=== PATIENT | female | born 1960 | race African-American/Black ===

== ENCOUNTER 2019-03-03 04:00 | Emergency (ER) | payer MEDICAID ==
[~2019-03-03] VITALS: Ht 160 cm; Wt 58.5 kg
[2019-03-03 04:00] VITALS: BP 155/107
--- NOTE | 2019-03-03 04:00 | NUR ---
PT BIBA TAKEN TO BED 6
[2019-03-03] MEDS ORDERED: ALBUTEROL SULFATE/IPRATROPIU 3 ML SOL IH ONE (04:15)
[2019-03-03] MEDS ORDERED: FUROSEMIDE 40 MG/4 ML VIAL IVP ONE (04:15)
--- NOTE | 2019-03-03 04:15 | NUR ---
58 Y/O F BIBA WITH C/O SOB X1 DAY. AAOX4. BILATERAL LUNGS CLEAR THROUGHOUT. O2 SATURATION AT 98% ON NASAL CANNULA. RESPIRATIONS LABORED AND RAPID, R 29. CHEST RISE AND FALL SYMMETRICAL. BP ELEVATED AT 153/108. BED IN LOWEST POSTION. BEDRAILX1 UP. GURNEY LOCKED. WILL CONTINUE TO MONITOR. HX: CHF, ASHTMA, HTN, HYLD NKA
--- NOTE | 2019-03-03 04:41 | NUR ---
PT AMBULATED TO RESTROOM.
[2019-03-03 04:48] LABS: EOSINOPHILS # (AUTO) 0.2 K/uL (0-0.4); HEMOGLOBIN 11.4 g/dL (12.0-16.0); MONOCYTES # (AUTO) 0.3 K/uL (0.8-1.0); PLATELET COUNT (AUTO) 249 K/uL (140-450); RED CELL DISTRIBUTION WIDTH 17.9 % (11.6-13.7)
[2019-03-03 04:49] LABS: APPEARANCE,URINE CLEAR (CLEAR); BILIRUBIN,URINE NEGATIVE (NEGATIVE); BLOOD, URINE NEGATIVE (NEGATIVE); COLOR,URINE YELLOW (YELLOW); LEUKOCYTE ESTERASE ,URINE 3+ (NEGATIVE); NITRITE, URINE NEGATIVE (NEGATIVE); PH,URINE 6.5 (5.0-9.0); UGLUCOSE NEGATIVE (NEGATIVE)
[2019-03-03 04:56] LABS: BASOPHILS % (AUTO) 0.6 % (0.0-2.0); EOSINOPHILS % (AUTO) 2.6 % (0.0-4.0); HEMATOCRIT 35.8 % (36-48); LYMPHOCYTES # (AUTO) 1.9 K/uL (2.5-16.5); LYMPHOCYTES % (AUTO) 29.9 % (20.5-51.1); MEAN CORPUSCULAR HEMOGLOBIN 26 pg (27-31); MEAN CORPUSCULAR HGB CONC 32 g/dL (33-37); MEAN CORPUSCULAR VOLUME 81.3 fL (80-94); MONOCYTES % (AUTO) 5.3 % (1.7-9.3); NEUTROPHILS # (AUTO) 3.9 K/uL (1.8-7.7); NEUTROPHILS % (AUTO) 61.6 % (42.2-75.2); WHITE BLOOD COUNT (AUTO) 6.4 K/uL (4.8-10.8)
[2019-03-03 04:57] LABS: ANION GAP 11.1 (8-16); CARBON DIOXIDE 26.5 mmol/L (21-32); POTASSIUM 3.6 mmol/L (3.5-5.1)
[2019-03-03 05:14] LABS: RBC,URINE 0-5 /HPF (0-5); TRICHOMONAS,URINE Rare /HPF (None Seen); WBC,URINE TOO MANY TO COUNT /HPF (0-5)
[2019-03-03 05:24] LABS: ALBUMIN 2.9 g/dL (3.4-5.0); TOTAL BILIRUBIN 0.9 mg/dL (0.0-1.0)
--- NOTE | 2019-03-03 05:30 | NUR ---
PT AMBULATED TO RESTROOM
[2019-03-03] MEDS ORDERED: cefTRIAXone 1,000 MG VIAL ONE ×2 (05:41)
[2019-03-03] MEDS ORDERED: hydrALAZINE 20 MG/ML VIAL IVP ONE (06:00)
[2019-03-03] MEDS ORDERED: MORPHINE SULFATE 4 MG/ML SYR IVP ONE (06:00)
--- NOTE | 2019-03-03 06:01 | NUR ---
PT C/O PAIN, 03/[address] JACOB MADE AWARE.
--- NOTE | 2019-03-03 06:10 | NUR ---
BP 161/113, HR 93. DR JACOB MADE AWARE.
[2019-03-03] MEDS ORDERED: NACL 0.9% 1,000 ML IV SCH (06:43)
[2019-03-03] MEDS ORDERED: MORPHINE SULFATE 2 MG/ML SYR IVP PRN (06:45)
[2019-03-03] MEDS ORDERED: ONDANSETRON 4 MG/2 ML VIAL IM/IVP PRN (06:45)
[2019-03-03] MEDS ORDERED: ZOLPIDEM 5 MG TAB PO PRN (06:45)
[2019-03-03] MEDS ORDERED: LORazepam 2 MG/ML VIAL IM/IVP PRN (06:45)
[2019-03-03] MEDS ORDERED: ACETAMINOPHEN 325 MG TAB PO PRN (06:45)
[2019-03-03] MEDS ORDERED: HYDROcodone/APAP 5/325 MG 1 TAB TAB PO PRN (06:45)
[2019-03-03] MEDS ORDERED: DOCUSATE SODIUM 100 MG GELCAP PO PRN (06:45)
[2019-03-03] MEDS ORDERED: DEXTROSE 50% 50 ML SYR IVP PRN (06:50)
[2019-03-03] MEDS ORDERED: ALBUTEROL SULFATE/IPRATROPIU 3 ML SOL IH PRN (06:50)
[2019-03-03] MEDS ORDERED: INSULIN LISPRO SLIDING SCALE 100 UNITS/ML VIAL SUBQ PRN (06:50)
--- NOTE | 2019-03-03 06:50 | NUR ---
BP REEVALUATED. BP NOW 151/93. WILL CONTINUE TO MONITOR.
--- NOTE | 2019-03-03 07:08 | NUR ---
BEDSIDE REPORT GIVEN TO SHEBA ALMANZA. TRANSFER OF CARE AT THIS TIME.
[2019-03-03] MEDS ORDERED: FURO-572 PO (07:21)
[2019-03-03] MEDS ORDERED: SIMV10TA1 PO (07:21)
[2019-03-03] MEDS ORDERED: ORE25 PO (07:21)
[2019-03-03] MEDS ORDERED: METF500S6 PO (07:21)
[2019-03-03] MEDS ORDERED: AMLO10TA PO (07:21)
[2019-03-03 07:27] LABS: PROTHROMBIN TIME 9.8 secs (10.8-13.4)
[2019-03-03 07:28] LABS: BARBITURATE, URINE NEG. ng/ml (NEG <=200); BENZODIAZEPINE, URINE NEG. ng/mL (NEG <=200); CANNABINOID, URINE NEG. ng/mL (NEG <=50); COCAINE, URINE POS. ng/mL (NEG <=300); OPIATE, URINE NEG. ng/mL (NEG <=2000); PHENCYCLIDINE SCREEN,URINE NEG. ng/mL (NEG <=25)
[2019-03-03] MEDS ORDERED: BLOOD GLUCOSE MONITORING 1 DEV DEV FS SCH (07:30)
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
--- NOTE | 2019-03-03 07:36 | NUR ---
PT AMBULATED OUTSIDE OF ER AND BEGAN TO SMOKE AND AGAIN AND STATES " IM GROWN YALL CANT TELL ME WHAT TO DO, I WANT TO SPEAK WITH MY DOCTORS", PT INSTRUCTED TO COME BACK INSIDE ER, AMBULATED INSIDE TO ER.
[2019-03-03 07:37] LABS: CHOL/HDL RATIO 2.9 (1-4.5); MAGNESIUM 2.1 mg/dL (1.8-2.4); THYROID STIMULATING HORMONE 1.8 uIU/mL (0.34-3.74)
[2019-03-03] MEDS ORDERED: FUROSEMIDE 40 MG/4 ML VIAL IVP SCH (08:00)
--- NOTE | 2019-03-03 08:10 | NUR ---
RESIDENT AT THE BEDSIDE. PT LYING COMFORTABLY IN HER BED, PENDING ADMIT. BS 85. GAVE ORANGE JUICE AND STARTED IV FLUID ORDERED. WILL CONTINUE TO MONITOR PT.
--- NOTE | 2019-03-03 08:15 | NUR ---
PT GIVEN BREAKFAST TRAY.
[2019-03-03] MEDS ORDERED: LACTOBACILLUS RHAMNOSUS GG 1 EACH CAP PO SCH (09:00)
[2019-03-03] MEDS ORDERED: NICOTINE TRANSD SYS 14 MG/24 HR PATCH TD SCH (09:00)
--- NOTE | 2019-03-03 09:27 | NUR ---
CHECKED ON PT. ASSISTED HER TO THE DSC. PAIN 6/10 AT THIS TIME. SITTING COMFORTABLY IN HER BED. PT O2 SAT 98% ON RA. PER PT, NO NEED OF OXYGEN SUPPLY. WILL CONTINUE TO MONITOR PT.
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
--- NOTE | 2019-03-03 11:27 | NUR ---
PT WENT WALKED OUT OF ER, PT ASKING FOR BELONGINGS THAT HAS BEEN WITH SECURITY. PT NON-COMPLIANCE WITH INSTRUCTION. RESIDENT DOCTOR MADE AWARE OF THE SITUATION. HOSPITAL SECURITY NOTIFIED.
--- NOTE | 2019-03-03 11:30 | NUR ---
PT WALKED OUT OF ER, ALL BELONGING RETURNED, IV REMOVED, PT AMBULATORY , STEADY GAIT. PATIENT ELOPED FROM FACILITY. DISCHARGE INSTRUCTIONS NOT GIVEN TO PATIENT. RESIDENT DOCTORS MADE AWARE.
[2019-03-03 11:33] VITALS: BP 135/86
--- NOTE | 2019-03-03 11:33 | NUR ---
PT ELOPED FORM ER . IV TAKEN OUT . SECURITY GAVE ALL PTS BELONGINGS. PT LEFT THE HOSPITAL. RESIDENT MADE AWARE. PT AAOX4 , ABLE TO AMBULATE. PT NON-COMPLAINCE WITH INSTRUCTION, AGRESSIVE AND BAD MOUTHING WITH SATFF MEMBER.
--- NOTE | 2019-03-03 11:33 | NUR ---
PATIENT ELOPED FROM FACILITY. DISCHARGE INSTRUCTIONS NOT GIVEN TO PATIENT. RESIDENT DR. MIRELES NOTIFIED.
[2019-03-03] MEDS ORDERED: ALBUTEROL SULFATE/IPRATROPIU 3 ML SOL IH SCH (13:00)
[2019-03-03] MEDS ORDERED: METFORMIN HCL 500 MG PO SCH (17:00)
[2019-03-03] MEDS ORDERED: SIMVASTATIN 10 MG TAB PO SCH (21:00)
[2019-03-04 08:07] LABS: T4 (THYROXINE) 8.7 ug/dL (4.5-12.0)
[2019-03-04] MEDS ORDERED: FUROSEMIDE 20 MG TAB PO SCH (09:00)
[2019-03-04] MEDS ORDERED: HYDROCHLOROTHIAZIDE 25 MG TAB PO SCH (09:00)
[2019-03-04] MEDS ORDERED: amLODIPine 5 MG TAB PO SCH (09:00)
[2019-03-04] MEDS ORDERED: FUROSEMIDE 40 MG/4 ML VIAL IVP SCH (09:00)
== END 2019-03-03 11:33 | disposition left against medical advice (07) ==
LOC: MED 04:00
DX: I50.9 Heart failure, unspecified (principal); J44.9 Chronic obstructive pulmonary disease, unspecified; N39.0 Urinary tract infection, site not specified; I11.0 Hypertensive heart disease with heart failure; E11.9 Type 2 diabetes mellitus without complications; F17.210 Nicotine dependence, cigarettes, uncomplicated; Z71.6 Tobacco abuse counseling
CPT/HCPCS: 36415; 71045; 80053; 80061; 80305; 81001; 81025; 82150; 82948; 83036; 83605; 83690; 83735; 83880; 84100; 84134; 84436; 84443; 84484; 85025; 85610; 85730; 87040; 87086; 93005; 93970; 94640; 94760; 96365; 96375; 96376; 99285; J0360; J0696; J1940; J2270; J7620; Q0092; J1815